=== PATIENT | male | born 2000 | race Caucasian/White ===

== ENCOUNTER 2023-02-12 07:16 | Day surgery (SDC) | payer BC ==
[2023-02-11 12:09] VITALS: BMI 19.5
[2023-02-12] MEDS ORDERED: PROPOFOL 40 ML ONE ×2 (10:33→10:40)
[2023-02-12] MEDS ORDERED: Midazolam HCl 2 mg/2 ml Vial ONE (10:34)
== END 2023-02-12 11:33 | disposition home or self-care (01) ==
LOC: CSHSDC 07:16
PROVIDERS: ATTEND Internal Medicine Gastroenterology
PROC: 0DB68ZX Excision of Stomach, Via Natural or Artificial Opening Endoscopic, Diagnostic (ICD-10-PCS; principal; 2023-02-12)
DX: K21.9 Gastro-esophageal reflux disease without esophagitis (principal); K31.9 Disease of stomach and duodenum, unspecified; K20.0 Eosinophilic esophagitis; Z88.0 Allergy status to penicillin
CPT/HCPCS: 88305; J2250; J2704